=== PATIENT | male | born 1995 | race Caucasian/White ===

== ENCOUNTER 2019-02-02 01:48 | Emergency (ER) | payer BC, OTHER ==
[2019-02-02] MEDS ORDERED: Ketorolac Tromethamine 30 MG/ML VIAL ONE (02:14)
[2019-02-02 02:21] LABS: #Basophils 0.1 thou/uL (0.0-0.2); #Eosinphils 0.1 thou/uL (0.0-0.7); #Monocytes 1.1 thou/uL (0.11-0.59); #Neutrophils 5.6 thou/uL (1.40-6.50); %Basophils 1.1 % (0.0-1.0); %Eosinophils 0.5 % (0.0-10.0); %Lymphocytes 36.6 % (21.0-51.0); %Monocytes 10.4 % (0.0-10.0); %Neutrophils 51.4 % (42.0-75.0); Hemoglobin 18.3 g/dL (14.0-18.0); Mean Corpuscular HGB CONC 34.7 g/dL (32.0-36.0); Mean Corpuscular Volume 89.3 fL (78.0-98.0); Mean Platelet Volume 8.8 fL (7.4-10.4); Platelet Count 254 thou/uL (130-400); RBC Distribution Width 11.7 % (11.5-14.5); Red Blood Cell (RBC) Count 5.92 mill/uL (4.70-6.10); White Blood Cell (WBC) Count 10.9 thou/uL (4.8-10.8)
[2019-02-02 03:37] LABS: Albumin 4.4 g/dL (3.5-5.0)
[2019-02-02 03:38] LABS: Chloride 106 mmol/L (98-107); Potassium 3.4 mmol/L (3.5-5.1); Sodium 139 mmol/L (136-145)
[2019-02-02 03:39] LABS: Calcium 9.7 mg/dL (7.8-10.44)
[2019-02-02 03:40] LABS: Glucose 108 mg/dL (70-105); Protein, Total 7.4 g/dL (6.0-8.3)
[2019-02-02 03:41] LABS: Anion Gap 12 mmol/L (10-20); Carbon Dioxide 24 mmol/L (22-29)
[2019-02-02 03:42] LABS: Bilirubin, Total 0.6 mg/dL (0.2-1.2)
[2019-02-02 03:43] LABS: Alkaline Phosphatase 86 U/L (40-150); Calc. Creatinine Clearance 0 mL/min (70-130); Estimated GFR-MDRD Greater than 90
[2019-02-02 03:44] LABS: BUN (Urea Nitrogen) 14 mg/dL (8.9-20.6)
[2019-02-02 03:45] LABS: AST (SGOT) 20 U/L (5-34)
[2019-02-02 03:46] LABS: ALT (SGPT) 17 U/L (8-55); CK (CPK) 210 U/L (30-200)
== END 2019-02-02 04:25 | disposition home or self-care (01) ==
LOC: ERS 01:48
DX: R51 Headache (principal); I48.91 Unspecified atrial fibrillation; G43.909 Migraine, unspecified, not intractable, without status migrainosus; F41.9 Anxiety disorder, unspecified
CPT/HCPCS: 36415; 80053; 82550; 84443; 84484; 85025; 93005; 96361; 96365; 96375; J1885

== ENCOUNTER 2021-10-15 19:05 | Observation (INO) | payer BC, OTHER ==
[2021-10-15] MEDS ORDERED: Morphine 4 MG/ML VIAL ONE (19:30)
[2021-10-15] MEDS ORDERED: Ondansetron PF 4 MG/2 ML Vial ONE (19:30)
[2021-10-15] MEDS ORDERED: Dicyclomine 20 MG/2 ML VIAL ONE (19:30)
[2021-10-15 19:36] LABS: #Lymphocytes 0.7 thou/uL (1.20-3.40); #Monocytes 0.5 thou/uL (0.11-0.59); #Neutrophils 10.1 thou/uL (1.40-6.50); %Basophils 0.2 % (0.0-1.0); %Eosinophils 0.3 % (0.0-10.0); %Lymphocytes 5.8 % (21.0-51.0); %Monocytes 4.5 % (0.0-10.0); %Neutrophils 89.2 % (42.0-75.0); Hemoglobin 17.6 g/dL (14.0-18.0); Mean Corpuscular Hemoglobin 32.2 pg (27.0-31.0); Mean Corpuscular Volume 94.8 fL (78.0-98.0); Mean Platelet Volume 7.6 fL (7.4-10.4); Platelet Count 229 thou/uL (130-400); RBC Distribution Width 11.2 % (11.5-14.5); Red Blood Cell (RBC) Count 5.48 mill/uL (4.70-6.10); White Blood Cell (WBC) Count 11.3 thou/uL (4.8-10.8)
[2021-10-15 19:57] LABS: ALT (SGPT) 19 U/L (8-55); AST (SGOT) 21 U/L (5-34); Albumin 4.9 g/dL (3.5-5.0); Alkaline Phosphatase 74 U/L (40-110); Anion Gap 19 mmol/L (10-20); BUN (Urea Nitrogen) 17 mg/dL (8.9-20.6); Calc. Creatinine Clearance 0 mL/min (70-130); Calcium 10.2 mg/dL (7.8-10.44); Carbon Dioxide 19 mmol/L (22-29); Chloride 101 mmol/L (98-107); Globulin 3.2 g/dL (2.4-3.5); Glucose 156 mg/dL (70-105); Lipase 35 U/L (8-78); Potassium 3.5 mmol/L (3.5-5.1); Protein, Total 8.1 g/dL (6.0-8.3); Sodium 135 mmol/L (136-145)
[2021-10-15] MEDS ORDERED: Ondansetron PF 4 MG/2 ML Vial IVP PRN (23:33)
[2021-10-15] MEDS ORDERED: HYDROcodone/Acetaminophen 5/325 mg Tablet PO PRN (23:33)
[2021-10-15] MEDS ORDERED: Zolpidem Tartrate 5 MG TAB PO PRN (23:33)
[2021-10-15] MEDS ORDERED: Acetaminophen 325 MG TAB PO PRN (23:33)
[2021-10-15] MEDS ORDERED: Metoclopramide HCl 10 MG/2 ML VIAL ONE (23:35)
[2021-10-15] MEDS ORDERED: Famotidine/PF 20 mg/2ml Vial ONE (23:35)
[2021-10-15] MEDS ORDERED: Promethazine HCl 25 MG in Sodium Chloride 0.9% 50 ML IVPB PRN (23:38)
[2021-10-16] MEDS ORDERED: Morphine 4 MG/ML VIAL SLOW IVP PRN (00:04)
[2021-10-16 00:17] LABS: Magnesium 1.7 mg/dL (1.6-2.6)
[2021-10-16 00:27] VITALS: BMI 23.5
[2021-10-16] MEDS: Lactated Ringer's 1,000 ML IV SCH ×3 (00:35→14:08)
[2021-10-16 02:37] LABS: SARS-CoV-2 NAA Rapid Test Not Detected (NotDetected)
[2021-10-16] MEDS: metroNIDAZOLE 500 MG in Premix Bag 1 BAG IVPB SCH ×2 (03:52→14:09)
[2021-10-16 06:02] LABS: #Lymphocytes 0.4 thou/uL (1.20-3.40); #Monocytes 0.5 thou/uL (0.11-0.59); #Neutrophils 9.1 thou/uL (1.40-6.50); %Basophils 0.1 % (0.0-1.0); %Eosinophils 0.1 % (0.0-10.0); %Lymphocytes 3.8 % (21.0-51.0); %Monocytes 5.4 % (0.0-10.0); %Neutrophils 90.6 % (42.0-75.0); Hemoglobin 15.6 g/dL (14.0-18.0); Mean Corpuscular HGB CONC 34.8 g/dL (32.0-36.0); Mean Corpuscular Hemoglobin 32.6 pg (27.0-31.0); Mean Corpuscular Volume 93.7 fL (78.0-98.0); Platelet Count 193 thou/uL (130-400); RBC Distribution Width 11.3 % (11.5-14.5); Red Blood Cell (RBC) Count 4.77 mill/uL (4.70-6.10)
[2021-10-16 06:30] LABS: ALT (SGPT) 18 U/L (8-55); AST (SGOT) 21 U/L (5-34); Alkaline Phosphatase 56 U/L (40-110); Anion Gap 11 mmol/L (10-20); BUN (Urea Nitrogen) 13 mg/dL (8.9-20.6); Bilirubin, Total 0.7 mg/dL (0.2-1.2); Calc. Creatinine Clearance 172 mL/min (70-130); Calcium 8.6 mg/dL (7.8-10.44); Carbon Dioxide 23 mmol/L (22-29); Chloride 107 mmol/L (98-107); Globulin 2.4 g/dL (2.4-3.5); Glucose 112 mg/dL (70-105); Potassium 3.9 mmol/L (3.5-5.1); Protein, Total 6.4 g/dL (6.0-8.3); Sodium 137 mmol/L (136-145)
[2021-10-16] MEDS ORDERED: Famotidine 20 MG TAB PO SCH (09:00)
[2021-10-16] MEDS ORDERED: Enoxaparin Sodium 30 MG/0.3 ML SYRINGE SC SCH (09:00)
[2021-10-16] MEDS ORDERED: metroNIDAZOLE 500 MG TAB PO SCH ×2 (12:15→21:00)
[2021-10-16 13:21] VITALS: BP 131/70; TEMP 98.8
== END 2021-10-16 14:27 | disposition home or self-care (01) ==
LOC: ERS 19:05 → SJJU 23:39
PROVIDERS: ADMIT Hospitalist; ATTEND Hospitalist
DX: A09 Infectious gastroenteritis and colitis, unspecified (principal); E86.0 Dehydration; E87.2 Acidosis; Q27.9 Congenital malformation of peripheral vascular system, unspecified; Z20.822 Contact with and (suspected) exposure to COVID-19
CPT/HCPCS: 36415; 74177; 80053; 83630; 83690; 83735; 84443; 85025; 87045; 87046; 87427; 87449; 96365; 96372; 96375; 96376; G0378; J0500; J1956; J2270; J2405; J2550; J2765; J7120; S0028; U0002